=== PATIENT | male | born 1950 | race Caucasian/White ===

== ENCOUNTER → 2019-07-02 | Day surgery (SDC) | payer OTHER, MEDICARE ==
[~2019-07-02] MED LIST: ADULT LOW DOSE81 MG PO; FISH OIL 1,0001 EAC9 PO; OXYCODONE HCL 55 MG PO; ROSUVASTATIN CA10 MG PO; VITAMIN D22000 UNIT PO
[2019-07-02 11:14] LABS: HEMATOCRIT 46.5 % (42.0-52.0); HEMOGLOBIN 16.3 gm/dL (14.0-18.0); MCV 94.2 fL (80.0-100.0); MPV 8.2 fl. (7.2-11.1); RBC 4.94 mil/uL (4.50-6.00); WBC 7.9 thou/uL (4.0-11.0)
[2019-07-02 11:19] LABS: CALCIUM 8.9 mg/dL (8.5-10.1); CREATININE 0.8 mg/dL (0.6-1.3); POTASSIUM 4.1 mmol/L (3.5-5.1)
[2019-07-02 11:24] LABS: ALBUMIN 4.1 g/dL (3.4-5.0); TOTAL BILIRUBIN 0.4 mg/dL (<0.1-1.0)
--- NOTE | 2019-07-02 12:32 | EKG ---
[place] [address] ELECTROCARDIOGRAM REPORT Name: ALBINO MARTINS JR Room: [facility]#: [id number] Admission: 07/02/19 Attend Phys: Reynaldo Loomis DO Discharge: Date of : 52 Report #: [id number] THIS REPORT FOR: //name// [facility] Test Date: 2019-07-02 Test Time: 11:14:59 Pat Name: ALBINO MARTINS Department: Room: Gender: M Account Development Associate: RT : 1950 Requested By: Reynaldo Loomis Order Number: [id number] Reading MD: Jim Denis Measurements Intervals [place] Rate: 85 P: 58 MD: 184 QRS: -18 QRSD: 104 T: 35 QT: 368 QTc: 438 Interpretive Statements Sinus rhythm Borderline left axis deviation Abnormal R-wave progression, early transition No previous ECG available for comparison Electronically Signed On 07-02-2019 12:31:52 AVP by Jim Denis [email or web address] <ELECTRONICALLY SIGNED> By: Jim Denis MD, [facility] 07/02/19 1231 1114 1114 Jim Denis MD, FACC /EPI
--- NOTE | 2019-07-09 11:24 | OP ---
[address] [address] OPERATIVE REPORT Name: ALBINO MARTINS JR Room: [facility]#: [id number] Admission: 07/02/19 Attend Phys: Reynaldo Loomis DO Discharge: Date of : 52 Report #: [id number] THIS REPORT FOR: //name// CC: Reynaldo Savage MD DATE OF SERVICE: 07/02/2019 REFERRING PHYSICIAN: Adebayo Savage MD PREOPERATIVE DIAGNOSIS: Right inguinal hernia. POSTOPERATIVE DIAGNOSIS: Right direct inguinal hernia. PROCEDURE: Da Caden robotic-assisted laparoscopic right inguinal hernia repair with large Bard 3DMax mesh. SURGEON: Reynaldo Loomis DO [employer] COMMISSIONER: Thi Blankenship DO ANESTHESIA: General endotracheal and TAP blocks. ESTIMATED BLOOD LOSS: Less than 20 mL. COMPLICATIONS: None. DESCRIPTION OF PROCEDURE: After obtaining proper consents and discussing risks and complications with the patient, he was taken to the operating room, laid in the supine position, administered general anesthesia. He was then prepped and draped in the usual sterile fashion, after TAP blocks were performed by Anesthesia as well. We then made a small supraumbilical skin incision after a time-out was performed. We carried the incision down through the skin into the subcutaneous tissue using electrocautery for hemostasis. Once the fascia was encountered, it was incised along the midline, grasped and elevated with Puneet clamps. The peritoneum was then bluntly opened using a hemostat. We then placed 2-0 Vicryl sutures in a [id number] fashion to secure the Tory trocar, which was then inserted and insufflation was begun. Once insufflation was complete, full visual inspection of the anterior abdominal organs was performed. This revealed a right direct inguinal hernia. There was no left inguinal hernia identified. There were no other gross abnormalities. We then placed a 12 mm right subcostal trocar and an 8.5 mm da Caden port in the left upper quadrant. We then docked the da Caden robot and we placed an 8.5 mm trocar through the 12 mm trocar on the right side. We then inserted laparoscopic scissors and a bipolar fenestrated grasper. [facility] [place] [address] OPERATIVE REPORT Name: ALBINO MARTINS JR Room: [facility]#: [id number] Admission: 07/02/19 Attend Phys: Reynaldo Loomis DO Discharge: Date of : 52 Report #: [id number] and went on console. Once on console, I was able to open the peritoneum from the median umbilical ligament laterally to the ASIS on the right hand side. I then dissected the preperitoneal space all the way down below the pubic ramus. We did identify a moderate sized direct inguinal hernia, which was completely dissected free and reduced back into the peritoneal cavity. I then continued the dissection laterally and opened the peritoneum all the way out to the ASIS and allowed dissected enough to allow for placement of a large Bard 3DMax mesh. We then inserted the 3DMax mesh, which was sutured in place to Vivek's ligament and medial and lateral to the inferior epigastric vessels using a 2-0 Vicryl suture. I then closed the peritoneal flap using a running 2-0 absorbable V-Loc suture. I also did remove a small cord lipoma prior to placing any mesh. Once this was all complete, we then removed all the needles and the small lipoma. I then rescrubbed and went back to the patient's bedside, where we undocked the da Caden robot. The 12 mm right upper quadrant trocar was removed and a PMI closure device was used to close the fascia in this area. We then closed the umbilical fascia using the two previously placed 0 Vicryl sutures plus two additional 0 Vicryl suture. Skin incisions were all closed using 4-0 Monocryl subcuticular stitches. Mastisol, Steri-Strips and OpSites were placed. The patient was awakened in the operating room and transported to recovery room in stable condition. <ELECTRONICALLY SIGNED> By: Reynaldo Loomis DO 07/09/19 1124 1550 1900Adalorraine Loomis DO /nt
== END | disposition home or self-care (01) ==
LOC: M.SUR 06:33
PROVIDERS: Surgery
DX: K40.90 Unilateral inguinal hernia, without obstruction or gangrene, not specified as recurrent (principal); E78.5 Hyperlipidemia, unspecified; I25.10 Atherosclerotic heart disease of native coronary artery without angina pectoris; Z98.890 Other specified postprocedural states; Z79.82 Long term (current) use of aspirin; Z79.891 Long term (current) use of opiate analgesic; Z79.899 Other long term (current) drug therapy